=== PATIENT | male | born 1950 | race African-American/Black ===

== ENCOUNTER 2021-03-10 06:41 | Inpatient (IN) | payer OTHER, MEDICARE ==
[~2021-03-10] VITALS: Ht 172.7 cm; Wt 89.5 kg
[2021-03-10 06:42] VITALS: BP 126/66
[2021-03-10 07:01] LABS: BE(vivo) -2.5 mmol/L (-2 to +3); PCO2 49.5 mmHg (35.0-45.0); sO2 75.8 % (92.0-98.0)
[2021-03-10 07:02] LABS: PO2 44.7 mmHg (80.0-100.0); pH 7.304 (7.360-7.450)
[2021-03-10 07:07] LABS: ABSOLUTE NEUTROPHILS 4.5 thou/uL (1.4-8.2); BASOPHILS 0.8 % (0.0-2.0); HEMATOCRIT 31.7 % (42.0-52.0); LYMPHOCYTES 12.8 % (24.0-44.0); MCH 27.7 pg (26.0-34.0); MCHC 31.5 g/dL (28.0-37.0); MCV 87.8 fL (80.0-100.0); MONOCYTES 6.1 % (1.0-8.0); PLATELET COUNT 258 thou/uL (150-400); POLYS 79.3 % (36.0-66.0); RBC 3.61 mil/uL (4.50-6.00); RDW 17.1 % (10.5-14.5); WBC 5.6 thou/uL (4.0-11.0)
[2021-03-10 07:20] LABS: CALCIUM 8.7 mg/dL (8.5-10.1); CREATININE 1.3 mg/dL (0.7-1.3); POTASSIUM 3.9 mmol/L (3.5-5.1)
--- NOTE | 2021-03-10 07:21 | EKG ---
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1950 Requested By: Rome Pelletier Order Number: [id number] MD: Bashir Cintron Measurements Intervals [place] Rate: 85 P: 47 SC: 128 QRS: -1 QRSD: 119 T: -35 QT: 414 QTc: 493 Interpretive Statements Sinus rhythm Nonspecific intraventricular conduction delay Borderline T abnormalities, inferior leads No previous ECG available for comparison Electronically Signed On 03-10-2021 7:21:32 BOTTOM TURNER by Bashir Cintron [email or web address] <ELECTRONICALLY SIGNED> By: Bashir Cintron MD, [facility] 03/10/21720 0654 [id number] Bashir Cintron MD, FACC /EPI
--- NOTE | 2021-03-10 11:54 | NUR ---
CARLITO, PT : [phone] PLEASE CALL WITH ANY UPDATES
[2021-03-10 13:54] VITALS: BP 148/78
[2021-03-10 14:45] VITALS: BP 148/78
[2021-03-10 15:39] VITALS: BP 148/78
[2021-03-10 17:08] LABS: % SATURATION 9 % (20-39); IRON 22 ug/dL (65-175); TIBC 251 ug/dL (250-450)
[2021-03-10 17:35] LABS: FOLIC ACID 22.1 ng/mL (8.6-58.9)
--- NOTE | 2021-03-10 18:11 | NUR ---
PATIENT ADMITTED TO ROOM 218 FROM ED. ON 10L NC. PLACED ON MONITOR. DENIES ANY PAIN OR DISCOMFORT. SITTING UP IN RECLINER CHAIR. ADMISSION ASSESSMENTS AND HISTORY DONE. UNABLE TO COMPLETE MED REC. PATIENT UNSURE OF MEDICATION REGIMINE. [facility] UNAVAILABLE UNTIL MORNING, NOTIFIED DR. SPANN OF THIS.
[2021-03-10 19:45] VITALS: BP 159/80
--- NOTE | 2021-03-11 02:25 | NUR ---
PT IS ALERT AND ORIENTED X4. LUNGS ARE CLEAR 10 LITERS O2 NASAL CANULA. AND SLEEPING. USES URINAL NEEDED. DENIES ANY PAIN ISSUES. 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 WANTS US TO CALL [facility] IN AM TO GET A LIST OF HIS MEDS HE DONT REMEMBER WHAT HE TAKES. WILL CALL IN AM TO FIND OUT. CALL LIGHT WITHIN REACH IF NEEDS ASSISTANCE
[2021-03-11 03:19] VITALS: BP 159/89
[2021-03-11 05:18] LABS: ABSOLUTE NEUTROPHILS 4.5 thou/uL (1.4-8.2); BASOPHILS 0.4 % (0.0-2.0); EOSINOPHILS 0.2 % (0.0-3.0); HEMATOCRIT 29.8 % (42.0-52.0); HEMOGLOBIN 9.4 gm/dL (14.0-18.0); LYMPHOCYTES 7.7 % (24.0-44.0); MCH 27.4 pg (26.0-34.0); MCHC 31.8 g/dL (28.0-37.0); MCV 86.4 fL (80.0-100.0); MONOCYTES 5.6 % (1.0-8.0); PLATELET COUNT 248 thou/uL (150-400); POLYS 86.1 % (36.0-66.0); RBC 3.45 mil/uL (4.50-6.00); RDW 17.1 % (10.5-14.5); WBC 5.3 thou/uL (4.0-11.0)
[2021-03-11 05:29] LABS: CALCIUM 8.7 mg/dL (8.5-10.1); CREATININE 1.1 mg/dL (0.7-1.3); MAGNESIUM 1.1 mg/dL (1.8-2.4); POTASSIUM 4.8 mmol/L (3.5-5.1)
[2021-03-11 09:24] VITALS: BP 149/82
--- NOTE | 2021-03-11 12:34 | 2DMMODE ---
[facility] [address] [place] [address] 2 D/M-MODE ECHOCARDIOGRAM Name: JOE ELDER Room #: 218-P ADM IN M.R.#: [id number] Admission: 03/10/21 Attend Phys: David Fields MD Discharge: Date of : 46 Report #: [id number] THIS REPORT FOR: cc: [facility] - Clinic physician unknown [facility] - Clinic physician unknown Satya Hughes MD [facility] ~ APPROVED REPORT Study performed: 03/11/2021 11:21:52 EXAM: Comprehensive 2D, Doppler, and color-flow Echocardiogram Patient Location: Bedside Room #: 218 Status: routine BSA: 2.01 HR: 90 bpm BP: 149/82 mmHg Rhythm: NSR Other Information Study Quality: Good Indications Congestive Heart Failure COPD Diabetes Elevated Troponin Hypertension/HDD 2D Dimensions RVDd: 53.16 mm IVSd: 9.66 (7-11mm) LVOT Diam: 19.79 (18-24mm) LVDd: 39.96 mm PWd: 10.05 (7-11mm) Ascending Ao: 30.93 (22-36mm) LVDs: 34.17 (25-40mm) Left Atrium: 31.24 (27-40mm) Aortic Root: 30.70 mm IVC: 28.00 mm Volumes Left Atrial Volume (Systole) Single Plane 4CH: 57.02 mL Single Plane 2CH: 55.77 mL LA ESV Index: 31.00 mL/m2 Aortic Valve [facility] [address] [place] [address] 2 D/M-MODE ECHOCARDIOGRAM Name: JOE ELDER Room #: 218-P ADM IN M.R.#: [id number] Admission: 03/10/21 Attend Phys: David Fields MD Discharge: Date of : 46 Report #: [id number] AoV Peak David.: 1.33 m/s AO Peak Gr.: 7.11 mmHg LVOT Max P.97 mmHg LVOT Max V: 0.86 m/s CLAUDINE Vmax: 1.99 cm2 Mitral Valve E/A Ratio: 0.6 MV Decel. Time: 372.17 ms MV E Max David.: 0.67 m/s MV A David.: 1.20 m/s MV PHT: 107.93 ms IVRT: 131.49 ms Pulmonary Valve PV Peak David.: 0.87 m/s PV Peak Gr.: 3.02 mmHg Pulmonary Vein P Vein S: 0.30 m/s P Vein A: 0.30 m/s P Vein D: 0.26 m/s P Vein A Dur.: 86.5 msec P Vein S/D Ratio: 1.15 Tricuspid Valve TR Peak David.: 3.40 m/s TR Peak Gr.: 46.25 mmHg PA Pressure: 56.00 mmHg Left Ventricle The left ventricle is normal size. There is normal LV segmental wall motion. There is normal left ventricular wall thickness. The left ventricular systolic function is normal. The left ventricular ejection fraction is within the normal range. LVEF is 55%. Mild diastolic dysfunction Right Ventricle Right ventricle is dilated. Right ventricle is hypokinetic. Atria The left atrium size is normal. Right atrium is dilated. Aortic Valve The aortic valve is sclerotic. No aortic regurgitation is present. There is no aortic valvular stenosis. Mitral Valve Mild mitral annular calcification There is no mitral valve [facility] [address] [place] [address] 2 D/M-MODE ECHOCARDIOGRAM Name: JOE ELDER Room #: 218-P [facility] IN ..#: [id number] Admission: 03/10/21 Attend Phys: David Fields MD Discharge: Date of : 46 Report #: [id number] regurgitation noted. No evidence of mitral valve stenosis. Tricuspid Valve The tricuspid valve is normal in structure. There is mild tricuspid regurgitation. Estimated pulmonary artery pressure of 55 mmHg. There is moderate pulmonary hypertension. Pulmonic Valve The pulmonary valve is normal in structure. There is no pulmonic valvular regurgitation. Great Vessels The aortic root is normal in size. IVC is dilated and collapses <50% with inspiration. Pericardium There is no pericardial effusion. <Conclusion> The left ventricular systolic function is normal. There is normal LV segmental wall motion. LVEF is 55%. Mild diastolic dysfunction Right ventricle and atrium are dilated. Right ventricle is hypokinetic. The aortic valve is sclerotic. No aortic regurgitation or stenosis. Mild mitral annular calcification. No mitral valve regurgitation. There is mild tricuspid regurgitation. Estimated pulmonary artery pressure of 55 mmHg. No pericardial effusion. <ELECTRONICALLY SIGNED> By: Satya Hughes MD, FACC 03/11/21 1234 1234 1234 Satya Hughes MD, FACC /INF
[2021-03-11 15:06] LABS: HDL CHOLESTEROL 43 mg/dL (>40); LDL CHOLESTEROL 60 mg/dL (<100); TC:HDL 2.7 Ratio (Not establshd); VLDL 12 mg/dL (<40)
[2021-03-11 15:35] LABS: CHOLESTEROL 115 mg/dL (<200); TRIGLYCERIDE 60 mg/dL (<150)
[2021-03-11 16:44] VITALS: BP 151/86
--- NOTE | 2021-03-11 16:58 | NUR ---
PATIENT ADMITTED FOR HYPOXIA; COPD EXACERBATION. CHART REVIEWED AND CASE DISCUSSED WITH CARE TEAM. CM MET WITH PT THIS DAY. CM ROLE INTRODUCED. PT REPORTS HE LIVES AT HOME IN AN APARTMENT WITH HIS . HE USES A CANE AND SOMETIMES A SCOOTER IN THE COMMUNITY. HE REPORTS DOING HIS OWN TOILETING BATHING AND DRESSING. HE REPORTS HE HAS HOME O2 AND USES [facility] FOR 02 SERVICES. HE DENIES USING HH OR REHAB IN THE PAST. WILL FOLLOW THERAPY AND PHYSICIAN RECOMMENDATIONS ON DC. JAZMÍN BAZZI.
[2021-03-11 20:33] VITALS: BP 148/73
[2021-03-11] MEDS ORDERED: LANTUS SUBQ (21:56)
[2021-03-11] MEDS ORDERED: PRAVASTATIN SOD80 MG PO (21:57)
[2021-03-11] MEDS ORDERED: NOVOLOG100 UNIT/1 SUBQ (21:59)
[2021-03-11] MEDS ORDERED: BUMETANIDE 1 MG1 M1 PO (22:01)
[2021-03-11] MEDS ORDERED: BENZTROPINE MES1 MG PO (22:02)
[2021-03-11] MEDS ORDERED: TENORMIN25 MG PO (22:36)
[2021-03-11] MEDS ORDERED: METFORMIN HCL500 M3 PO (22:37)
[2021-03-11] MEDS ORDERED: ADALAT CC90 MG PO (22:38)
[2021-03-11] MEDS ORDERED: SPIRONOLACTONE25 MG PO (22:39)
[2021-03-11] MEDS ORDERED: VENLAFAXINE HCL75 MG PO (22:45)
[2021-03-11] MEDS ORDERED: VITAMIN B-121000 MC2 PO (22:51)
[2021-03-11] MEDS ORDERED: FERROUS SULFAT324 M1 PO (22:55)
[2021-03-11] MEDS ORDERED: DIVALPROEX SOD500 M1 PO (22:57)
[2021-03-12 02:44] VITALS: BP 148/73
[2021-03-12 03:30] VITALS: BP 174/101
[2021-03-12 05:14] LABS: HEMATOCRIT 30.5 % (42.0-52.0); HEMOGLOBIN 10.2 gm/dL (14.0-18.0); MCH 28.6 pg (26.0-34.0); MCHC 33.4 g/dL (28.0-37.0); MCV 85.8 fL (80.0-100.0); RBC 3.56 mil/uL (4.50-6.00); RDW 16.8 % (10.5-14.5)
[2021-03-12 05:22] LABS: CREATININE 0.9 mg/dL (0.7-1.3); POTASSIUM 4.2 mmol/L (3.5-5.1)
--- NOTE | 2021-03-12 07:39 | EKG ---
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 : 1950 Requested By: Satya Hughes Order Number: [id number] : Bashir Cintron Measurements Intervals [place]abella Rate: 77 P: 55 CA: 130 QRS: -9 QRSD: 87 T: -13 QT: 407 QTc: 461 Interpretive Statements Sinus rhythm Probable left atrial enlargement Borderline T abnormalities, inferior leads Compared to ECG 03/10/2021 06:54:04 Intraventricular conduction delay no longer present T-wave abnormality still present Electronically Signed On 03-12-2021 7:38:43 MACHINE LEARNING INTERN by Bashir Cintron [email or web address] <ELECTRONICALLY SIGNED> By: Bashir Cintron MD, [facility] 03/12/2138 0 0 Bashir Cintron MD, [facility] /EPI
[2021-03-12 08:55] VITALS: BP 181/98
[2021-03-12 10:02] VITALS: BP 181/98
--- NOTE | 2021-03-12 13:03 | NUR ---
PT STATED HE WANTED TO LEAVE AMA, I ASKED THE PATIENT IF THERE WAS ANYTHING WE COULD DO TO CHANGE HIS MIND HE STATED NO. WOOL MERCHANT WAS INFORMED SHE SPOKE WITH THE PATIENT UNABLE TO CHANGE HIS MIND. PHYSICIAN WAS NOTIFIED. PATIENT SIGNED AMA PAPERWORK, HE WAS INFORMED OF THE RISK OF LEAVING THE HOSPITAL PRIOR TO DISCHARGE. PATIENT STATED HE DIDN'T CARE AND WAS LEAVING. IV WAS REMOVED WITH TIP INTACT. MANAGER DRIVE WAS REMOVED.
== END 2021-03-12 13:16 | disposition left against medical advice (07) | DRG 291 ==
LOC: ER 06:41 → EROBS 11:17 → 2N 11:17
PROVIDERS: Internal Medicine; Nurse Practitioner; Student in an Organized Health Care Education/Training Program; ADMIT Hospitalist; ATTEND Hospitalist
PROC: 5A09357 Assistance with Respiratory Ventilation, Less than 24 Consecutive Hours, Continuous Positive Airway Pressure (ICD-10-PCS; principal; 2021-03-10)
PROC: 5A0945A Assistance with Respiratory Ventilation, 24-96 Consecutive Hours, High Flow/Velocity Cannula (ICD-10-PCS; principal; 2021-03-10)
DX: I11.0 Hypertensive heart disease with heart failure (principal); J18.9 Pneumonia, unspecified organism; J96.21 Acute and chronic respiratory failure with hypoxia; J96.22 Acute and chronic respiratory failure with hypercapnia; R65.11 Systemic inflammatory response syndrome (SIRS) of non-infectious origin with acute organ dysfunction; I50.31 Acute diastolic (congestive) heart failure; J44.1 Chronic obstructive pulmonary disease with (acute) exacerbation; J44.0 Chronic obstructive pulmonary disease with (acute) lower respiratory infection; J91.8 Pleural effusion in other conditions classified elsewhere; J98.11 Atelectasis; R77.8 Other specified abnormalities of plasma proteins; D64.9 Anemia, unspecified; E78.5 Hyperlipidemia, unspecified; R59.0 Localized enlarged lymph nodes; E11.9 Type 2 diabetes mellitus without complications; F17.210 Nicotine dependence, cigarettes, uncomplicated; Z53.29 Procedure and treatment not carried out because of patient's decision for other reasons; Z20.822 Contact with and (suspected) exposure to COVID-19; Z99.81 Dependence on supplemental oxygen; Z88.8 Allergy status to other drugs, medicaments and biological substances
CPT/HCPCS: 10081